=== PATIENT | female | born 1950 | race Caucasian/White ===

== ENCOUNTER 2017-10-06 11:09 | Emergency (ER) | payer MEDICARE ==
[2017-10-06 11:18] VITALS: BP 216/93; PULSE 82; RESP 18; TEMP 97.5
--- NOTE | 2017-10-06 12:24 | ED ---
General Adult HPI - General Chief complaint: Fall Stated complaint: Fall, head injury Time Seen by Provider: 10/06/17 11:10 Source: patient, RN notes reviewed Mode of arrival: ambulatory Limitations: no limitations - History of Present Illness Initial comments: This is a 66-year-old female states she was on the ice and slipped backward and hit the back of her head on the ground. Patient complains of posterior scalp pain. Patient states she did not lose consciousness and she was not dazed. Patient denies any neck pain. Patient denies numbness or weakness. Patient denies any back pain patient denies any upper or lower extremity pain. Patient denies any chest pain or abdominal pain. Patient denies being on any blood thinners. Patient denies any visual disturbances or speech disturbances - Related Data Home Medications Medication Instructions Recorded Confirmed No Known Home Medications [No 10/06/17 10/06/17 Known Home Medications] Allergies Allergy/AdvReac Type Severity Reaction Status Date / Time No Known Allergies Allergy Verified 10/06/17 12:26 Review of Systems ROS Statement: Those systems with pertinent positive or pertinent negative responses have been documented in the HPI. ROS Other: All systems not noted in ROS Statement are negative. Past Medical History History of Any Multi-Drug Resistant Organisms: None Reported Past Surgical History: Section, Cholecystectomy Past Psychological History: No Psychological Hx Reported Smoking Status: Never smoker Past Alcohol Use History: None Reported Past Drug Use History: None Reported General Exam - General Exam Comments Initial Comments: GENERAL: Patient is well-developed and well-nourished. Patient is nontoxic and well- hydrated and is in mild distress. ENT: Neck is soft and supple. No significant lymphadenopathy is noted. Oropharynx is clear. Moist mucous membranes. Patient's patient has a hematoma on the occipital region of the scalp. EYES: The sclera were anicteric and conjunctiva were pink and moist. Extraocular movements were intact and pupils were equal round and reactive to light. Eyelids were unremarkable. PULMONARY: Unlabored respirations. Good breath sounds bilaterally. No audible rales rhonchi or wheezing was noted. CARDIOVASCULAR: There is a regular rate and rhythm without any murmurs gallops or rubs. SKIN: Skin is clear with no lesions or rashes and otherwise unremarkable. NEUROLOGIC: Patient is alert and oriented x3. Cranial nerves II through XII are grossly intact. Motor and sensory are also intact. Normal speech, volume and content. Symmetrical smile. MUSCULOSKELETAL: Normal extremities with adequate strength and full range of motion. LYMPHATICS: No significant lymphadenopathy is noted PSYCHIATRIC: Normal psychiatric evaluation. Limitations: no limitations Course Vital Signs 10/06/17 11:13 Temperature 97.5 F L Pulse Rate 82 Respiratory 18 Rate Blood Pressure 216/93 O2 Sat by Pulse 99 Oximetry Disposition Clinical Impression: Fall, Head injury Disposition: HOME SELF-CARE Condition: Good Instructions: Head Injury (ED) Referrals: None,Stated [Primary Care Provider] - 1-2 days Time of Disposition: 13:07
--- NOTE | 2017-10-06 12:59 | CT ---
EXAMINATION TYPE: CT brain beth aragon con DATE OF EXAM: 10/06/2017 COMPARISON: NONE HISTORY: Fall, SKAGGS, neck pain CT DLP: 1811 mGycm, Automated exposure control for dose reduction was used. CONTRAST: None CT of the brain is performed utilizing 3 mm thick sections through the posterior fossa and 3 mm thick sections through the remaining calvarium. Study is performed within 24 hours of arrival to the hospital. No abnormal hyperdensity is present to suggest an acute intracranial hemorrhage. No mass lesion is evident. No acute infarcts are evident. Ventricles and sulci are appropriate for the patient age. There is some prominence of the extra-axial space. Paranasal sinuses and mastoid air cells within the [id number] are clear. There is soft tissue swelling over the vertex occipital region. No underlying fracture is evident. IMPRESSIONS: 1. Normal CT brain. CT cervical spine. COMPARISON: None CT of the cervical spine is performed in the axial plane at 2 mm thick sections. Reconstructed image s in the coronal, and sagittal plane are reviewed on the computer. No acute fractures are evident. Vertebral body alignment is normal. Diffuse disc space narrowing is present greater in the mid cervical spine Vertebral body heights are preserved. No spinal canal stenosis is evident. C4-5: Uncovertebral joint hypertrophy has severe left and moderate to severe right foraminal stenosis . Some endplate spurring is noted. Endplate spurring and uncovertebral joint hypertrophy is also pres ent C5-6 with moderate to severe bilateral foraminal stenosis. Uncovertebral joint hypertrophy C6-7 h as moderate to severe left foraminal stenosis. IMPRESSIONS: 1. No acute osseous abnormality. 2. Degenerative changes and foraminal stenosis discussed above
== END 2017-10-06 13:31 | disposition home or self-care (01) ==
LOC: EC 11:09
DX: S09.90XA Unspecified injury of head, initial encounter (principal); W00.0XXA Fall on same level due to ice and snow, initial encounter; Y92.89 Other specified places as the place of occurrence of the external cause
CPT/HCPCS: 70450; 72125; 99283